=== PATIENT | female | born 1985 | race Caucasian/White ===

== ENCOUNTER → 2017-02-26 | Outpatient (CLI) | payer BC | END | disposition home or self-care (01) | LOC: C.LABSPEC 16:16 | PROVIDERS: ATTEND Physician Assistant | DX: Z11.3 Encounter for screening for infections with a predominantly sexual mode of transmission (principal) ==

== ENCOUNTER → 2017-02-26 | Outpatient (CLI) | payer BC | END | disposition home or self-care (01) | LOC: C.PAPS 10:26 | PROVIDERS: ATTEND Physician Assistant | DX: Z01.419 Encounter for gynecological examination (general) (routine) without abnormal findings (principal) ==

== ENCOUNTER 2017-03-21 11:01 | Emergency (ER) | payer BC ==
[~2017-03-21] VITALS: Ht 167.6 cm; Wt 63.2 kg
[2017-03-21 11:04] VITALS: TEMP 37.1; Ht 167.6 cm; Wt 63.2 kg
[2017-03-21] MEDS ORDERED: BCPILLS PO (11:13)
[2017-03-21 11:50] LABS: INFLUENZA B ANTIGEN Neg for Influ B (NEG)
--- NOTE | 2017-03-21 12:02 | EMERGENCY ROOM VISIT NOTE ---
ED Visit Note First contact with patient: 11:06 CHIEF COMPLAINT: Flulike symptoms HISTORY of present illness: This 31-year-old female presents the ER with chief complaint of feeling sweaty all night but did not take her temperature. This morning when she woke up she had a sore throat cough with clear drainage and felt achy. 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 The patient denies any ear pain. The patient denies any chest pain or shortness of breath. She denies any history of asthma. REVIEW OF SYSTEMS: 6 system review was performed and was negative unless stated otherwise in history of present illness. PMH: The patient is healthy; there is no significant medical or surgical history. SOCIAL HISTORY: Patient lives with her parents. The patient denies tobacco use but admits to occasional alcohol use. PHYSICAL EXAM: Vital Signs were reviewed: Temperature 37.1, blood pressure 125/ 88, pulse 86, respirations 18 Reviewed Nurse's notes and agree. Oxygen saturation is 100 % on room air which is normal . GENERAL: 31-year-old female appears in no acute distress. MENTAL STATUS: Alert, oriented, coherent. EARS: Canals clear. TMs good light reflex, no erythema or fluid level noted. NOSE: Nasal mucosa with minimal erythema engorgement. PHARYNX: Mild erythema, no edema noted. No exudate noted. Airway is adequate. NECK: Supple, non-tender. No lymphadenopathy noted. LUNGS: Clear to auscultation without wheezes rales or rhonchi. CARDIAC: Regular rate and rhythm without murmur. SKIN: No rashes noted. EMERGENCY COURSE: The patient was evaluated. Rapid strep was negative, culture is pending. Rapid influenza was negative for influenza A and influenza B. The patient was informed of the findings and discharged home in stable condition. DIAGNOSIS: Viral upper respiratory infection Pharyngitis DISCHARGE INSTRUCTIONS: Tylenol and/or ibuprofen as needed for fever and body aches. Push fluids, rest. Call in 24 hours for throat culture results. Patient condition was stable. Please see Emergency Department Medical Record for additional patient information; this may include discharge diagnosis, interpretation of EKG, laboratory, and/or radiologic studies, Emergency Department course, etc. Current/Historical Medications Scheduled Control Pills ( Control Pills), 1 TAB PO DAILY Allergies Coded Allergies: No Known Allergies (Unverified , 03/21/17) Vital Signs Date Time Temp Pulse Resp B/P (MAP) Pulse Ox O2 Delivery O2 Flow Rate FiO2 03/21/17 11:04 37.1 86 18 125/88 100 Room Air Laboratory Results Test 03/21/17 11:10 Influenza Type A Antigen Neg for Influ A (NEG) Influenza Type B Antigen Neg for Influ B (NEG) Departure Information Referrals No Doctor, Assigned (PCP) Patient Instructions [facility]
[2017-03-21 12:10] VITALS: BP 125/83; PULSE 76; O2SAT 98
--- NOTE | 2017-03-22 12:16 | Pharmacy Progress Note ---
ED Pharmacist Progress Note Date of Service: Mar 22, 2017. Patient called regarding throat culture results. Informed patient that her rapid test was negative, the back up culture was currently negative but was still preliminary. I let her know we would call her if result turned positive.
== END 2017-03-21 12:08 | disposition home or self-care (01) ==
LOC: C.EDB 11:03 → C.EDD 12:08
DX: J06.9 Acute upper respiratory infection, unspecified (principal)

== ENCOUNTER → 2017-10-05 | Outpatient (CLI) | payer BC ==
[~2017-10-05] MED LIST: BCPILLS PO
== END | disposition home or self-care (01) ==
LOC: C.LABBFT 10:17
PROVIDERS: ATTEND Family Medicine
DX: Z20.2 Contact with and (suspected) exposure to infections with a predominantly sexual mode of transmission (principal)